=== PATIENT | male | born 1970 | race Caucasian/White ===

== ENCOUNTER → 2017-12-07 | Day surgery (SDC) | payer OTHER ==
[~2017-12-07] MED LIST: BUPIVACAINE-EPI 0.25%-1:200000 MPF 30 ML VIAL. ONE
--- NOTE | 2017-12-08 17:04 | PATHOLOGY ---
PATHOLOGY REPORT * * * * * * * * FINAL DIAGNOSIS: Fibroadipose tissue, left upper arm: - Angiolipoma. COMMENT: There is no evidence of malignancy. (JPM:pedro; 12/08/2017) REPORT ELECTRONICALLY SIGNED BY: Ronak Sutton M.D. DATE/TIME: 12/08/2017 17:03 * * * * * * * * GROSS PATHOLOGY: Received in formalin labeled "Jordan Bentley, lipoma left upper arm," is a segment of lobulated fibroadipose tissue measuring 1.5 x 1.3 x 0.6 cm in maximum dimensions. Sectioning reveals homogeneous, bright yellow cut surfaces. It is entirely submitted in cassette A1. (SDY; 12/07/2017) INITIAL CPT CODE(S): A; 43636 Professional services performed [place] [facility] [place] [address] Technical services performed by [facility] at [address] [place] [address], [place] [address]. rEick Guevara fax: SPECIMEN(S) RECEIVED: A.Lipoma CLINICAL HISTORY: Lipoma PATIENT: JORDAN BENTLEY /AGE: 1210/23/1970 (Age: 47) PATIENT #: [id number] ALT CASE #: SPECIMEN COLLECTION DATE: 12/07/2017 SPECIMEN RECEIVED DATE: 12/07/2017 [facility] - [address] [place] [address] - PHONE: [phone] * * * END OF REPORT * * *
== END | disposition home or self-care (01) ==
LOC: SURG 07:42
PROVIDERS: ATTEND Surgery
DX: D17.22 Benign lipomatous neoplasm of skin and subcutaneous tissue of left arm (principal); Z87.891 Personal history of nicotine dependence; Z90.49 Acquired absence of other specified parts of digestive tract; Z98.890 Other specified postprocedural states
CPT/HCPCS: 24071; 88304; J3490